=== PATIENT | male | born 1970 | race American Indian/Alaskan Native ===

== ENCOUNTER 2018-11-28 07:58 | Inpatient (IN) | payer BC ==
[~2018-11-28] VITALS: Ht 185.4 cm; Wt 103.2 kg
[2018-11-28 09:01] LABS: BASOPHILS 0.1 % (0-2); EOSINOPHILS 0 % (0-7); HEMATOCRIT 46.5 % (42.0-54.0); HEMOGLOBIN 15.7 g/dL (13.5-17.5); IMMATURE GRANULOCYTES 0.2 % (0-5); MCH 31.2 pg (26.0-34.0); MCHC 33.8 g/dL (31.0-37.0); MCV 92.3 fL (80.0-100.0); MEAN PLATELET VOLUME 12.7 fL (7.4-10.4); NEUTROPHILS 92.7 % (40-80); PLATELET COUNT 146 10x3/uL (130-400); RBC 5.04 10x6/uL (4.20-6.10); RDW 13.5 % (11.5-14.5); WBC 10.5 10x3/uL (4.8-10.8)
[2018-11-28 09:15] LABS: ALBUMIN 3.5 g/dL (3.4-5.0); ANION GAP 15.4 mmol/L (8-16); BILIRUBIN - TOTAL 1.19 mg/dL (0.2-1.3); CALCIUM 8.7 mg/dL (8.5-10.1); CARBON DIOXIDE 25.4 mmol/L (21.0-32.0); CREATININE - SERUM 1.2 mg/dL (0.6-1.3); POTASSIUM - SERUM 3.8 mmol/L (3.5-5.1); PROTEIN - SERUM 7.7 g/dL (6.4-8.2)
[2018-11-28 09:24] LABS: APPEARANCE CLOUDY (CLEAR); BACTERIA MANY /hpf (NONE SEEN); BILIRUBIN NEGATIVE (NEGATIVE); COLOR DK YELLOW (YELLOW); EPITHELIAL CELLS 0-5 /hpf (0-5); GLUCOSE 250 mg/dL (NEGATIVE); KETONE SMALL mg/dL (NEGATIVE); MUCUS <1+ /lpf (NONE SEEN); NITRITE NEGATIVE (NEGATIVE); PROTEIN 1+ mg/dL (NEGATIVE); RED CELLS - URINE 0-5 /hpf (0-5); SPECIFIC GRAVITY 1.025 (1.005-1.020); UROBILINOGEN NORMAL (NORMAL)
--- NOTE | 2018-11-28 10:01 | NUR ---
BLADDER SCAN PERFORMED, RESULTED 231 ML, REPEATED AND RESULTED 234 ML, ER PROVIDER NOTIFIED.
--- NOTE | 2018-11-28 12:18 | NUR ---
RECEIVED TO ROOM VIA WHEELCHAIR. GLASSES ON. IV OF NS INFUSING AT 125 CC/HR TO RIGHT HAND AND LEVAQUIN. NO SWELLING SEEN. WANTS TO STAY IN [facility] UNTIL BRINGS IN [facility].
--- NOTE | 2018-11-28 12:31 | MORECARE ---
CASE MANAGEMENT DISCHARGE SUMMARY PATIENT: BENTLEY SAMS UNIT: [id number] ADM DATE: 11/28/18 AGE: 48 : 66 SEX: M ROOM/BED: D.1210 AUTHOR: TERRA DO PHYSICIAN: REFERRING PHYSICIAN: RADHA CARLSON MD DATE OF SERVICE: 11/28/18 Discharge Plan Patient Name: BENTLEY SAMS [facility] [facility] 1970 Planned Disposition: Home Anticipated Discharge Date: 12/01/18 Discharge Date: Expected LOS: 3 Initial Reviewer: [email or web address] Initial Review Date: 11/28/2018 Generated: 11/28/18 1:31 pm DCPIA - Discharge Planning Initial Assessment Updated by [email or web address]: Suki Adair on 11/28/18 12:30 pm * Is the patient Alert and Oriented? Yes * How many steps to enter\exit or inside your home? * PCP Dr. Rojo * Pharmacy [facility] * Preadmission Environment Home with Family * ADLs Independent * Equipment None * List name and contact numbers for known caregivers / representatives who currently or will assist patient after discharge: Umm Sams - spouse - [phone] * Verbal permission to speak to the caregivers and representatives has been obtained from the patient. Yes * Community resources currently utilized None * Additional services required to return to the preadmission environment? No * Can the patient safely return to the preadmission environment? Yes * Has this patient been hospitalized within the prior 30 days at any hospital? No Patient Name: BENTLEY SAMS Page [id number] at 1231 All edits/amendments must be made on the electronic document DICTATION DATE: 11/28/18 1231 STUDIO ARTIST: AMEE 11/28/18 1231 RPT#: [id number] DC DATE: STATUS: ADM IN [facility] [address] [place] [address] END OF REPORT
--- NOTE | 2018-11-28 12:39 | MORECARE ---
CASE MANAGEMENT DISCHARGE SUMMARY PATIENT: BENTLEY SAMS UNIT: [id number] ADM DATE: 11/28/18 AGE: 48 : 66 SEX: M ROOM/BED: D.1210 AUTHOR: HIDOC PHYSICIAN: REFERRING PHYSICIAN: RADHA CARLSON MD DATE OF SERVICE: 11/28/18 Discharge Plan Patient Name: BENTLEY SAMS Facility: [facility]:[place] : 1970 Planned Disposition: Home Anticipated Discharge Date: 12/01/18 Discharge Date: Expected LOS: 3 Initial Reviewer: [email or web address] Initial Review Date: 11/28/2018 Generated: 11/28/18 1:39 pm DCP- Discharge Planning Updated by [email or web address]: Suki Adair on 11/28/18 11:[address] Patient Name: BENTLEY SAMS Admission Status: ER Accout number: [id number] Admission Date: 11-28-2018 : 1970 Admission Diagnosis: Attending: RADHA JEAN Current LOS: 1 Anticipated DC Date: 12-01-2018 Planned Disposition: Home Primary Insurance: [employer] OUT OF STATE Discharge Planning Comments: CM met with patient to complete initial dc planning assessment. CM educated patient on the CM role and verbal consent given by patient to complete assessment. Patient lives at home with his and reports he is independent in his care. At discharge patient plans to return home and feels this is a safe discharge. CM discussed availability of home health, rehab services, and medical equipment. Patient denied known discharge needs at this time. CM will continue to follow and will assist as needed with dc plans/needs. Personal Injury Law Specialist: Suki Adair RN, [facility] DCPIA - Discharge Planning Initial Assessment Updated by [email or web address]: Suki Adair on 11/28/18 12:30 pm * Is the patient Alert and Oriented? Yes * How many steps to enter\exit or inside your home? * PCP Dr. Rojo * Pharmacy [facility] * Preadmission Environment Home with Family * ADLs Independent * Equipment None * List name and contact numbers for known caregivers / representatives who currently or will assist patient after discharge: Umm Sams - spouse - [phone] * Verbal permission to speak to the caregivers and representatives has been obtained from the patient. Yes * Community resources currently utilized None * Additional services required to return to the preadmission environment? No * Can the patient safely return to the preadmission environment? Yes * Has this patient been hospitalized within the prior 30 days at any hospital? No Last DP export: 11/28/18 11:31 a Patient Name: BENTLEY SAMS Page [phone] at 1239 All edits/amendments must be made on the electronic document DICTATION DATE: 11/28/18 1238 REMOTE SENSING TECHNICIAN: AMEE 11/28/18 1238 RPT#: [id number] DC DATE: STATUS: ADM IN [facility] [address] [place] [address] END OF REPORT
[2018-11-28 13:49] VITALS: BP 110/79
[2018-11-28 16:04] VITALS: BP 141/83
--- NOTE | 2018-11-28 16:37 | NUR ---
ATTEMPTED TO PLACE A MCKENZIE WITH 16F, AND CHARGE NURSE ATTEMPTED TO PLACE A 16F COUDE, BOTH UNSUCCESSFUL. CHARGE NURSE, MICHELLE FINK FROM [facility] HERE TO ATTEMPT TO PLACE A 14F COUDE. PATIENT REPORTS "FREEZING", HE IS SHIVERING IN THE BED. TYLENOL AND ZOFRAN GIVEN AT THIS TIME BY CHARGE SALLY
--- NOTE | 2018-11-28 17:35 | NUR ---
ATTEMPTED 14FR COUDE MCKENZIE CATH WITHOUT SUCCESS. A LOT OF RESISTANCE MET AND PT WAS VERY NAUSEATED AND IN PAIN. NOTIFIED IN PERSON OF CONSULT.
[2018-11-28 18:12] VITALS: Ht 185.4 cm; Wt 103.2 kg
--- NOTE | 2018-11-28 19:34 | NUR ---
REPORTED INCREASED PAIN TO ANDREW VANCE. NEW ORDER NOTED FOR DILAUDID IVP.
--- NOTE | 2018-11-28 20:02 | NUR ---
SITTING UP IN BED WATCHING TV. ALERT AND ORIENTED X4. TALKATIVE WITH STAFF. REPORTS PENILE PAIN 6 ON PAIN SCALE. MEDICATED WITH DILAUDID IVP ORDERED. NS @ 100 ML/HR INFUSING IN RT HAND WITHOUT DIFF. PENIS IS RED AND SWOLLEN. STATES PAIN IS GREATER UPON URINATION. URINE IS DIEUDONNE AND ONLY VOIDING SMALL AMOUNTS AT A TIME. SPOKE WITH JOSIAH [employer]ILLWORK ESTIMATOR AND THERE ARE NO TELEMETRY UNITS AVAILABLE AT THIS TIME FOR PT. SR ELEVATED X2. CL IN REACH.
[2018-11-28 20:29] VITALS: BP 123/73
[2018-11-29] VITALS (7 sets, daily range): BP systolic 117–179; BP diastolic 76–89
--- NOTE | 2018-11-29 01:28 | NUR ---
NAUSEATED AND GAGGING. MEDICATED WITH ZOFRAN FOR NAUSEA.
--- NOTE | 2018-11-29 02:00 | NUR ---
MEDICATED WITH DILAUDID FOR C/O PENILE PAIN RATING 8. CL IN REACH.
--- NOTE | 2018-11-29 02:18 | NUR ---
STILL GAGGING. NO RELIEF FROM ZOFRAN YET.
--- NOTE | 2018-11-29 02:34 | NUR ---
NOTIFIED ANDREW VANCE OF PT STILL EXTREMELY NAUSEATED AND GAGGING. NEW ORDER NOTED FOR PHENERGAN IM X1 DOSE.
--- NOTE | 2018-11-29 06:21 | NUR ---
FEELING MUCH BETTER THIS AM. UOP IS INCREASING. URINE IS STILL DIEUDONNE. VERY TALKATIVE WITH STAFF. CONSENTS FOR PROCEDURE ARE SIGNED AND ON CHART.
--- NOTE | 2018-11-29 07:10 | NUR ---
INITIAL ROUNDING ON THE PATIENT, HE IS AWAKE AND AWAITING PROCEDURE TIME. PATIENT REPORTS HE IS URINATING BETTER, LESS PAIN WITH THE PAIN MEDICATION. HE HAS BEEN NPO SINCE 0000.
[2018-11-29 07:53] LABS: CALC OSMOLALITY 283 mosm/kg (275-300); CARBON DIOXIDE 21.7 mmol/L (21.0-32.0); CHLORIDE - SERUM 106 mmol/L (98-107); GLUCOSE 144 mg/dL (74-106); MAGNESIUM - SERUM 1.8 mg/dL (1.8-2.4); POTASSIUM - SERUM 3.5 mmol/L (3.5-5.1); SODIUM 140 mmol/L (136-145); UREA NITROGEN 17 mg/dL (7-18); eGFR NON AFRICAN AMERICAN 84 mL/min (90-120)
[2018-11-29 08:14] LABS: BASOPHILS 0.1 % (0-2); EOSINOPHILS 0 % (0-7); HEMATOCRIT 39.4 % (42.0-54.0); HEMOGLOBIN 13.5 g/dL (13.5-17.5); IMMATURE GRANULOCYTES 0.2 % (0-5); LYMPHOCYTES 5.7 % (15-50); MCHC 34.3 g/dL (31.0-37.0); MCV 90.4 fL (80.0-100.0); MEAN PLATELET VOLUME 12.7 fL (7.4-10.4); MONOCYTES 9.2 % (2-11); NEUTROPHILS 84.8 % (40-80); PLATELET COUNT 82 10x3/uL (130-400); RBC 4.36 10x6/uL (4.20-6.10); RDW 13.3 % (11.5-14.5); WBC 12.2 10x3/uL (4.8-10.8)
[2018-11-29 08:58] LABS: PLATELET ESTIMATE DECREASED
--- NOTE | 2018-11-29 13:54 | NUR ---
PATIENT PREOPED ORDERED, OR STAFF HERE TO TAKE PT TO PROCEDURE.
[2018-11-29] MEDS ORDERED: HYDROCODON-ACE1 EAC7 PO (16:15)
[2018-11-29] MEDS ORDERED: LEVAQUIN750 MG PO (16:16)
[2018-11-29] MEDS ORDERED: ULTRAM50 MG PO (16:32)
--- NOTE | 2018-11-29 17:53 | NUR ---
IV REMOVED, DISCHARGE PAPERS REVIEWED WITH THE PATIENT. TEACHING ON MCKENZIE CARE AND HYGINE CARE COMPLETE. PATIENT AWAITING A RIDE HOME
--- NOTE | 2018-12-01 08:57 | MORECARE ---
CASE MANAGEMENT DISCHARGE SUMMARY PATIENT: BENTLEY SAMS UNIT: [id number] ADM DATE: 11/28/18 AGE: 48 : 66 SEX: M ROOM/BED: D.1210 AUTHOR: TERRA DO PHYSICIAN: REFERRING PHYSICIAN: RADHA CARLSON MD DATE OF SERVICE: 12/01/18 Discharge Plan Patient Name: BENTLEY SAMS Facility: [facility]:[place] : 1970 Planned Disposition: Home Anticipated Discharge Date: 12/01/18 Discharge Date: 11/29/2018 Expected LOS: 3 Initial Reviewer: [email or web address] Initial Review Date: 11/28/2018 Generated: 12/01/18 9:57 am DCP- Discharge Planning Updated by [email or web address]: Suki Adair on 11/28/18 11:[address] Patient Name: BENTLEY SAMS Admission Status: ER Accout number: [id number] Admission Date: 11-28-2018 : 1970 Admission Diagnosis: Attending: RADHA JEAN Current LOS: 1 Anticipated DC Date: 12-01-2018 Planned Disposition: Home Primary Insurance: [employer] OUT OF STATE Discharge Planning Comments: CM met with patient to complete initial dc planning assessment. CM educated patient on the CM role and verbal consent given by patient to complete assessment. Patient lives at home with his and reports he is independent in his care. At discharge patient plans to return home and feels this is a safe discharge. CM discussed availability of home health, rehab services, and medical equipment. Patient denied known discharge needs at this time. CM will continue to follow and will assist as needed with dc plans/needs. Color Drum Worker: Suki Adair RN, [facility] DCPIA - Discharge Planning Initial Assessment Updated by [email or web address]: Suki Adair on 11/28/18 12:30 pm * Is the patient Alert and Oriented? Yes * How many steps to enter\exit or inside your home? * PCP Dr. Rojo * [facility] [address] * Preadmission Environment Home with Family * ADLs Independent * Equipment None * List name and contact numbers for known caregivers / representatives who currently or will assist patient after discharge: Umm Sams - spouse - [phone] * Verbal permission to speak to the caregivers and representatives has been obtained from the patient. Yes * Community resources currently utilized None * Additional services required to return to the preadmission environment? No * Can the patient safely return to the preadmission environment? Yes * Has this patient been hospitalized within the prior 30 days at any hospital? No Last DP export: 11/28/18 11:39 a Patient Name: BENTLEY SAMS Page [id number] at 0857 All edits/amendments must be made on the electronic document DICTATION DATE: 12/01/1857 HEAD OF ADVERTISING: AMEE 12/01/18 0857 RPT#: [id number] DC DATE:11/29/18 STATUS: DIS IN [facility] [address] [place] [address] END OF REPORT
--- NOTE | 2018-12-02 08:36 | OP ---
PATIENT NAME: BENTLEY FORBES MEDICAL RECORD: [id number] :[birth year] LOCATION:D. 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 PROCEDURES: Reduction of paraphimosis, cystoscopy with direct vision, internal urethrotomy, insertion of a Mcgarry catheter over a guidewire. FINDINGS: Multiple level of the urethral strictures. Nonobstructive prostate. Paraphimosis. ESTIMATED BLOOD LOSS: Minimal. CLINICAL HISTORY: This is a 48-year-old male, who was admitted to hospital with fevers, chills, rigors and urinary tract infection. His bladder was scanned and his bladder volume was over 250 mL. He had a great deal of difficulty voiding. He said he could only pass a few drops at a time. He was having a lot of bladder spasms and urgency. Attempts by the nurses to pass a Mcgarry catheter was not successful due to meeting resistance. He did eat dinner last night and therefore the procedure could not be done last night. He comes to have the procedure done today. His urine has been cultured. It is growing gram-positive cocci and he is on IV Levaquin at the present empirically. Since he is already on IV antibiotics, we did not give him any further antibiotics. DESCRIPTION OF PROCEDURE: The patient was initially given IV sedation. He was placed in the dorsal lithotomy position. We could not even touch the patient without him reacting significantly. Finally, we had to convert him to general anesthetic. He has quite a severe paraphimosis. I managed to squeeze the edema out of the penile foreskin and get the penile foreskin placed back to where it belongs. Going with a 17-Turkish cystoscope, I immediately encountered a urethral stricture in the mid urethra. A Sensor wire was passed through the stricture lumen and into the bladder. We then had to switch over to the direct vision, internal optic urethrotome, or DVIU. Strictures were all incised with a cold knife at the 12 o'clock position. There were at least 3 levels of strictures. Finally, we got through the prostatic urethra, which was nonobstructive. Going into the bladder, the bladder showed no signs of injury or other lesions. The wire was indeed within the bladder. We then removed the scope, leaving the wire in place. Over the wire, we inserted a 16-Turkish [place] tip Mcgarry catheter. The balloon was inflated with 10 cc of sterile water. The wire was then removed entirely. The catheter was put to bag drainage. The patient will require the Mcgarry catheter for at least 1 week to allow the urethral strictures to heal to the diameter of the catheter. He will also need to be treated for his current UTI. TRANSINT:[id number] Voice Confirmation ID: [id number] DOCUMENT ID: [id number] OPERATIVE REPORT [id number] BENTLEY FORBES, KAMALJIT Estrada MD at 0836 CC: [id number] DICTATION DATE: 11/29/18 1506 ADULT SCHOOL COUNSELOR: 11/29/18 2224 DIS IN 11/29/18 [place] [id number] [place] [address]
== END 2018-11-29 20:28 | disposition home or self-care (01) | DRG 728 ==
LOC: D.ER 07:58 → D.EDHOLD 11:13 → D.M3 11:13
PROVIDERS: Emergency Medicine; Urology; ADMIT Family Medicine Adult Medicine
PROC: 0T7D8ZZ Dilation of Urethra, Via Natural or Artificial Opening Endoscopic (ICD-10-PCS; 2018-11-29)
PROC: 0T9B80Z Drainage of Bladder with Drainage Device, Via Natural or Artificial Opening Endoscopic (ICD-10-PCS; principal; 2018-11-29 08:00)
DX: N41.0 Acute prostatitis (principal); N12 Tubulo-interstitial nephritis, not specified as acute or chronic; N40.0 Benign prostatic hyperplasia without lower urinary tract symptoms; Z87.891 Personal history of nicotine dependence; N47.2 Paraphimosis; N35.919 Unspecified urethral stricture, male, unspecified site